=== PATIENT | male | born 1990 | race Two or more races ===

== ENCOUNTER 2020-07-08 11:48 | Emergency (ER) | payer OTHER ==
[~2020-07-08] VITALS: Ht 165.1 cm; Wt 72.0 kg
[2020-07-08 11:54] VITALS: BP 112/69
--- NOTE | 2020-07-08 12:29 | NUR ---
FIRST CONTACT W/ PT. AT BEDSIDE. PT RESTING ON GURNEY W/ CALL LIGHT IN REACH, RESP EVEN AND UNLABORED, LAUREN.
[2020-07-08] MEDS ORDERED: AZITHROMYCIN 500 MG TABLET ONE (12:36)
[2020-07-08] MEDS ORDERED: CEFTRIAXONE 1,000 MG ONE (12:37)
--- NOTE | 2020-07-08 12:47 | NUR ---
URINE COLLECTED AND SENT TO LAB. PT MEDICATED PER EMAR. RESTING ON GURNEY W/ CALL LIGHT IN REACH. RESP EVEN AND UNLABORED, LAUREN.
[2020-07-08 12:59] LABS: MICROSCOPIC NOT IND
[2020-07-08] MEDS ORDERED: AZITHROMYCIN 500 MG TABLET PO ONE (13:00)
[2020-07-08] MEDS ORDERED: CEFTRIAXONE 250 MG IM ONE (13:00)
--- NOTE | 2020-07-08 14:13 | NUR ---
Patient given discharge instructions and Rx they have confirmed that they understand the instructions. Patient ambulatory with steady gait.
== END 2020-07-08 14:23 | disposition home or self-care (01) ==
LOC: ED 13:49
DX: N30.00 Acute cystitis without hematuria (principal); N34.2 Other urethritis
CPT/HCPCS: 81003; 87491; 87591; 96372; 99283; J0696

== ENCOUNTER → 2020-12-24 | Outpatient (CLI) | payer OTHER ==
[2020-12-24 11:56] LABS: MEAN CORPUSCULAR HEMOGLOBIN 30.9 pg (27.5-34.5); MEAN CORPUSCULAR HGB CONC 34.5 g/dL (33.2-36.2); MEAN PLATELET VOLUME 8.2 fL (7.4-10.4); PLATELET COUNT 232 x10^3/uL (130-400); RED BLOOD COUNT 5.06 x10^6/uL (4.38-5.82); RED CELL DISTRIBUTION WIDTH 12.5 % (9.4-14.8)
[2020-12-24 12:37] LABS: ALANINE AMINOTRANSFERASE 23 U/L (12-78); ANION GAP 6 mmol/L (5-15); BILIRUBIN,TOTAL 0.7 mg/dL (0.2-1.0); CALCIUM 9.1 mg/dL (8.5-10.1); CHLORIDE 106 mmol/L (98-107); CREATININE 1.18 mg/dL (0.7-1.3)
[2020-12-24 12:38] LABS: ALBUMIN 4.2 g/dL (3.4-5.0); ALKALINE PHOSPHATASE 82 U/L (45-117); CHOL/HDL RATIO 4.9; CHOLESTEROL, TOTAL 185 mg/dL (140-239); HDL CHOL % 21 % (26-37); HDL CHOLESTEROL (DIRECT) 38 mg/dL (40-60); LDL CHOLESTEROL,CALCULATED 120 mg/dL (54-169); LDL/HDL RATIO 3.2 (0.5-3.0); T4 (THYROXINE) 9.3 mcg/dL (4.5-12.1); TOTAL PROTEIN 8.2 g/dL (6.4-8.2); TRIGLYCERIDES 135 mg/dL (50-200); VLDL CHOLESTEROL 27 mg/dL (0-25)
== END | disposition home or self-care (01) ==
LOC: LAB 11:32
PROVIDERS: ATTEND Nurse Practitioner Primary Care
DX: Z00.00 Encounter for general adult medical examination without abnormal findings (principal)
CPT/HCPCS: 36415; 80053; 80061; 82306; 84436; 84443; 84481; 85027